=== PATIENT | male | born 1995 | race Caucasian/White ===

== ENCOUNTER 2017-12-05 20:52 | Emergency (ER) | payer OTHER ==
[2017-12-05 20:56] VITALS: RESP 16; TEMP 97.9
--- NOTE | 2017-12-05 21:05 | EDPHY ---
H & P Time Seen by Provider: 12/05/17 20:53 HPI/ROS: CHIEF COMPLAINT: Abdominal pain HISTORY OF PRESENT ILLNESS: Patient started having symptoms about 6 or 7 days ago with just of vague stomach ache. About 3 days ago, it localized to his right side and today is worse. It does not radiate. It is cramping and worse with walking. No nausea vomiting or diarrhea. Symptoms moderate. Not associated with urinary or testicular symptoms or recent trauma injury or fall, or fever. REVIEW OF SYSTEMS: Eye: no change in vision ENT: no sore throat Cardiac: no chest pain or syncope Pulmonary: no cough or SOB Abdomen: HPI Musculoskeletal: Intermittent right lower back pain over the last month without radiation or neurologic symptoms Skin: no rash Neuro: no headache Constitutional: no fever : no urinary symptoms, no dysuria or hematuria, no testicular symptoms. A comprehensive 10 point review of systems is otherwise negative aside from elements mentioned in the history of present illness. PAST MEDICAL HISTORY: Negative Social history: Here with his girlfriend, frequent alcohol but none the last 24 hr General Appearance: Alert and conversant, cooperative. Eyes: No scleral icterus. ENT, Mouth: Normal mucous membranes. Respiratory: Normal respiratory effort, breath sounds equal, lungs are clear to auscultation. No splinting. Cardiovascular: Regular rate and rhythm. Gastrointestinal: Right lower quadrant abdominal tenderness, normal male , no rebound or guarding. Bowel sounds present. No hernia appreciated. Neurological: Alert, face symmetric, normal motor and sensory in extremities. Skin: Warm and dry, no rashes. Musculoskeletal: No peripheral edema. Psychiatric: Not agitated. Emergency Department course/MDM: Right lower quadrant abdominal pain and tenderness, CT scanning discussed and consented. I-STAT creatinine 1.1, pain medications declined. 2213: Normal liver function tests and lipase, normal CT abdomen and pelvis per Dr. Ellis with a appendix which is normal visualized. Reasonable to discharge the patient without peritoneal signs, normal CT, no fever, normal white blood cell count. Urine dip negative for blood or infection. The patient will be referred to Urology this week with incidental slight right hydronephrosis without evidence of renal colic or UTI. He has had some on going intermittent right low back pain without neurologic or urinary symptoms, I think that is more likely to just be muscular and not related to this incidental finding on CT. Smoking Status: Former smoker Constitutional: Initial Vital Signs Temperature (C) 36.6 C 12/05/17 20:53 Heart Rate 73 12/05/17 20:53 Respiratory Rate 16 12/05/17 20:53 Blood Pressure 123/65 H 12/05/17 20:53 O2 Sat (%) 96 12/05/17 20:53 O2 Delivery Mode Room Air Allergies/Adverse Reactions: No Known Allergies Allergy (Unverified 12/05/17 20:56) Home Medications: Medication Instructions Recorded NK [No Known Home Meds] 12/05/17 Medical Decision Making - Diagnostics Imaging Results: Imaging Impressions Abdomen CT 12/05/17 21:23 Impression: 1. A normal appendix is visualized. 2. 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 3. See above report for additional findings. Results called and discussed with Tyrell Borden M.D. on 12/05/2017 at 22:25. Differential Diagnosis: Differential considered including but not limited to appendicitis, testicular torsion, hernia, gallbladder disease, hepatitis. - Data Points Laboratory Results: Laboratory Results 12/05/17 21:15 12/05/17 21:15 12/05/17 12/05/17 12/05/17 21:22 21:15 21:15 WBC 7.90 10^3/uL 10^3/uL (3.80-9.50) RBC 5.29 10^6/uL 10^6/uL (4.40-6.38) Hgb 15.8 g/dL g/dL (13.7-17.5) POC Hgb 16.3 gm/dL gm/dL (13.7-17.5) Hct 46.1 % % (40.0-51.0) POC Hct 48 % % (40-51) MCV 87.1 fL fL (81.5-99.8) MCH 29.9 pg pg (27.9-34.1) MCHC 34.3 g/dL g/dL (32.4-36.7) RDW 13.2 % % (11.5-15.2) Plt Count 384 10^3/uL 10^3/uL (150-400) MPV 9.7 fL fL (8.7-11.7) Neut % (Auto) 55.4 % % (39.3-74.2) Lymph % (Auto) 34.3 % % (15.0-45.0) [place] % (Auto) 7.6 % % (4.5-13.0) Eos % (Auto) 1.9 % % (0.6-7.6) Baso % (Auto) 0.3 % % (0.3-1.7) Nucleat RBC Rel Count 0.0 % % (0.0-0.2) Absolute Neuts (auto) 4.38 10^3/uL 10^3/uL (1.70-6.50) Absolute Lymphs (auto) 2.71 10^3/uL 10^3/uL (1.00-3.00) Absolute Monos (auto) 0.60 10^3/uL 10^3/uL (0.30-0.80) Absolute Eos (auto) 0.15 10^3/uL 10^3/uL (0.03-0.40) Absolute Basos (auto) 0.02 10^3/uL 10^3/uL (0.02-0.10) Absolute Nucleated RBC 0.00 10^3/uL 10^3/uL (0-0.01) Immature Gran % 0.5 % % (0.0-1.1) Immature Gran # 0.04 10^3/uL 10^3/uL (0.00-0.10) POC Sodium 142 mEq/L mEq/L (135-145) Sodium 143 mEq/L mEq/L (135-145) POC Potassium 3.9 mEq/L mEq/L (3.3-5.0) Potassium 4.3 mEq/L mEq/L (3.5-5.2) POC Chloride 103 mEq/L mEq/L (97-110) Chloride 103 mEq/L mEq/L (97-110) Carbon Dioxide 26 mEq/l mEq/l (22-31) Anion Gap 14 mEq/L mEq/L (8-16) POC BUN 19 mg/dL mg/dL (7-23) BUN 18 mg/dL mg/dL (7-23) Creatinine 1.0 mg/dL mg/dL (0.7-1.3) POC Creatinine 1.1 mg/dL mg/dL (0.7-1.3) Estimated GFR > 60 Glucose 90 mg/dL mg/dL (70-100) POC Glucose 93 mg/dL mg/dL (70-100) Calcium 10.1 mg/dL mg/dL (8.5-10.4) Total Bilirubin 0.7 mg/dL mg/dL (0.1-1.4) Conjugated Bilirubin 0.3 mg/dL mg/dL (0.0-0.5) Unconjugated Bilirubin 0.4 mg/dL mg/dL (0.0-1.1) AST 20 IU/L IU/L (17-59) ALT 25 IU/L IU/L (21-72) Alkaline Phosphatase 77 IU/L IU/L (38-126) Total Protein 8.6 g/dL H g/dL (6.3-8.2) Albumin 5.2 g/dL H g/dL (3.5-5.0) Lipase 65 IU/L IU/L (23-300) Medications Given: Discontinued Medications Sodium Chloride (Ns) 1,000 mls @ 0 mls/hr IV EDNOW ONE; Wide Open PRN Reason: Protocol Stop: 12/05/17 21:23 Last Admin: 12/05/17 22:01 Dose: 1,000 mls Point of Care Test Results: 12/05/17 21:22 POC Sodium 142 POC Potassium 3.9 POC Chloride 103 POC BUN 19 POC Creatinine 1.1 POC Glucose 93 Departure - Departure Disposition: Home, Routine, Self-Care Clinical Impression: Abdominal pain Qualifiers: Abdominal location: right lower quadrant Qualified Code(s): R10.31 - Right lower quadrant pain Condition: Good Instructions: Acute Abdominal Pain (ED) Additional Instructions: Your CT scan showed a normal appendix. You need to return to the emergency department immediately if you develop worsening or severe pain, fever, vomiting or you are not better in 8-12 hours. Referrals: RENETTA FRANCO [Other] - As per Instructions Ernie Navarro MD [Medical Doctor] - As per Instructions (Your right kidney on CT scan was just slightly more swollen than the left. Please see this urologist in follow-up before the end of the week. NO kidney stone or other abnormality seen.)
[2017-12-05] MEDS ORDERED: NS 1,000 ML IV ONE (21:22)
[2017-12-05 21:30] LABS: PLATELET COUNT 384 10^3/uL (150-400)
[2017-12-05] MEDS ORDERED: IOPAMIDOL (ISOVUE-300) 100 ML BTL ONE (21:35)
[2017-12-05 22:38] VITALS: BP 128/72; PULSE 74; O2SAT 97
== END 2017-12-05 22:39 | disposition home or self-care (01) ==
DX: R10.31 Right lower quadrant pain (principal); E86.9 Volume depletion, unspecified; Z87.891 Personal history of nicotine dependence
CPT/HCPCS: 82947-QW; Q9967

== ENCOUNTER → 2018-07-11 | Outpatient (CLI) | payer OTHER ==
[~2018-07-11] MED LIST: FUROSEMIDE 40 MG/4 ML VIAL ONE
== END ==
LOC: FIMAGING 11:07
PROVIDERS: ATTEND Specialist
DX: Z48.816 Encounter for surgical aftercare following surgery on the genitourinary system (principal)
CPT/HCPCS: 78708; A9562; J1940

== ENCOUNTER 2018-07-25 18:44 | Emergency (ER) | payer OTHER ==
--- NOTE | 2018-07-25 19:39 | EDPHY ---
H & P Time Seen by Provider: 07/25/18 19:00 HPI/ROS: CHIEF COMPLAINT: Right ankle pain HISTORY OF PRESENT ILLNESS: 23-year-old male via private vehicle complaining of acute right ankle pain after he was skateboarding, rolled his foot. Occurred shortly prior to arrival. No fall from height. No calcaneus or foot pain. No proximal tibia or fibula pain. Prior history of ankle sprain. REVIEW OF SYSTEMS: A ten point review of systems was performed and is negative with the exception of the items mentioned in the HPI PHYSICAL EXAM (Prior to examination, patient consented to physical exam, hands were washed and my usual and customary physical exam procedures followed) 1) GENERAL: Well-developed, well-nourished, alert and oriented. Appears to be in no acute distress. 2) HEAD: Normocephalic 3) HEENT: Pupils equal, round, reactive to light bilaterally. 4) LUNGS: Breathing comfortably. 5) MUSCULOSKELETAL: Tender to palpation lateral malleolus. Soft tissue swelling lateral malleolus. proximal tibia and fibula nontender .5th MT nontender negative Gonzalez test, compartments soft 6) SKIN: Intact 7) VASCULAR: DP,PT pulses and cap refill present and brisk DIFFERENTIAL DIAGNOSIS: in no particular order including but not limited to fracture, sprain, compartment syndrome Procedure: Crutches indications for crutch use discussed with patient. Patient fitted for crutches by ER staff. Observed ambulating with crutches. I think the patient has the capacity to safely use crutches. Usual and customary crutch walking precautions provided Procedure: Splint A juan boot splint was applied by ER diesel service technician. After application of the splint I returned and re-examined the patient. The splint was adequately immobilizing the joint and distal to the splint the patient's circulation and sensation were intact. Patient shows no signs of compartment syndrome. Was given orthopedic precautions. Smoking Status: Former smoker Constitutional: Initial Vital Signs Temperature (C) 36.7 C 07/25/18 18:54 Heart Rate 61 07/25/18 18:54 Respiratory Rate 16 07/25/18 18:54 Blood Pressure 116/74 07/25/18 18:54 O2 Sat (%) 94 07/25/18 18:54 O2 Delivery Mode Room Air Allergies/Adverse Reactions: No Known Allergies Allergy (Verified 04/23/18 14:59) Home Medications: Medication Instructions Recorded Herbals/Supplements -Info Only 1 each PO DAILY 04/16/18 Ibuprofen [Motrin (*)] 200 mg PO DAILY PRN 04/16/18 Multivitamins [Multivitamin (*)] 1 each PO DAILY 04/16/18 MDM/Departure - MDM Imaging Results: Imaging Impressions Ankle X-Ray 07/25/18 19:01 Impression: Negative for fracture. Images myself ED Course/Re-evaluation: Patient's x-ray shows no definitive fracture. Dr. Cornel Wu was in the emergency department at this time, reviewed the x-rays and consulted with the patient, offered follow up in the office. Patient given usual and customary orthopedic precautions instructions. - Depart Disposition: Home, Routine, Self-Care Clinical Impression: Right ankle sprain Qualifiers: Encounter type: initial encounter Involved ligament of ankle: unspecified ligament Qualified Code(s): S93.401A - Sprain of unspecified ligament of right ankle, initial encounter Condition: Good Instructions: Ankle Sprain (ED) Additional Instructions: Return to the ER immediately if you experience discoloration, have worsening pain, numbness, tingling, or any other symptoms that concern you. If you received x-rays in the emergency department today, be advised, that ligamentous , tendon, muscular, and other non-bony injury cannot be fully ruled out. Try to keep your affected extremity elevated above the level of your chest, and keep cold packs on the affected area, for the next 48 hours. Referrals: Cornel Wu MD [Medical Doctor] - 2-3 days, call for appt.
[2018-07-25 19:54] VITALS: BP 130/69
--- NOTE | 2018-07-25 20:44 | GCON ---
I was asked to see and evaluate the patient by the emergency room. CHIEF COMPLAINT: Right ankle pain. HPI: Please see the emergency room physician's report, but in brief, the patient sustained an ankle injury earlier this evening while skateboarding. He has had several ankle sprains recently. PHYSICAL EXAM: He has some tenderness to palpation of the AITFL, but stable and grossly neurologically intact. No obvious deformity is noted. I reviewed the x-rays, which demonstrate some soft tissue swelling but, otherwise, a grossly unremarkable x-ray without evidence of a fracture, dislocation or subluxation. IMPRESSION: Right ankle sprain. ASSESSMENT AND PLAN: I would like to see the patient in my office in about a week. At that point, we will get him set up with physical therapy for proprioceptive training, as he may have some ankle instability at this point. I gave my card to the patient and told him to follow up with me in about 7 days ' time. /[id number]/MODL MTDD
== END 2018-07-25 19:53 | disposition home or self-care (01) ==
DX: S93.401A Sprain of unspecified ligament of right ankle, initial encounter (principal); X50.1XXA Overexertion from prolonged static or awkward postures, initial encounter; Y93.51 Activity, roller skating (inline) and skateboarding
CPT/HCPCS: L4386